=== PATIENT | male | born 1995 | race Caucasian/White ===

== ENCOUNTER 2016-09-29 20:42 | Emergency (ER) | payer OTHER | END 2016-09-29 22:10 | disposition home or self-care (01) | LOC: D.ER 20:42 | DX: S80.01XA Contusion of right knee, initial encounter (principal); X58.XXXA Exposure to other specified factors, initial encounter; Y93.89 Activity, other specified; Y92.89 Other specified places as the place of occurrence of the external cause ==

== ENCOUNTER 2020-09-16 15:42 | Emergency (ER) | payer MEDICARE ==
[~2020-09-16] VITALS: Ht 185.4 cm; Wt 84.1 kg
[2020-09-16 15:47] VITALS: BP 145/76; Ht 185.4 cm; Wt 84.1 kg
[2020-09-16] MEDS ORDERED: NAPROSYN500 MG PO (16:11)
== END 2020-09-16 17:00 | disposition home or self-care (01) ==
LOC: D.ER 15:42
DX: M26.621 Arthralgia of right temporomandibular joint (principal)